=== PATIENT | female | born 1970 | race Caucasian/White ===

== ENCOUNTER 2023-01-22 07:02 | Outpatient (CLI) | payer BC, MEDICAID, SELFPAY ==
--- NOTE | 2023-01-22 07:17 | MR_ITS ---
WS: [id number] MRI LEFT KNEE HISTORY: L KNEE PAIN COMPARISON: None available. Anterior cruciate ligament: Intact. Posterior cruciate ligament: Intact. Medial collateral ligament: Intact. Posterior lateral corner structures: Intact. Medial menisci: Intact. Normal signal, size and shape. Lateral meniscus: Intact. Normal signal, size and shape. Extensor mechanism: Distal quadriceps tendon and patellar tendons are intact. Fluid and soft tissue: Minimal fluid in the suprapatellar bursa. Very tiny Toro's cyst. There is an additional soft tissue cystic mass posterior to the femoral metaphysis measuring 1.4 x 1.8 cm. There are serpiginous cystic areas extending from this mass posterior to the lateral femoral condyle. Mass is closely associated with the posterior femoral condyle and the synovium. Osseous and articular structures: Patellofemoral compartment: Normal. Medial compartment: Normal. Lateral compartment: Normal. MR/MR knee LT wo con* [id number] IMPRESSION: 1. Cystic mass with serpiginous cystic extension posterior to the femoral meta physis and greatest along the posterior lateral femoral condyle. Largest cystic component measures 1.4 x 1.8 cm. Differential includes ganglion, extracapsular synovial cyst and occult meniscal tear with cyst formation. 2. Very tiny Toro's cyst. 3. No meniscal tear identified.
== END 2023-01-22 07:03 | disposition home or self-care (01) ==
PROVIDERS: PCP Nurse Practitioner Family; Visit Provider Nurse Practitioner Family
DX: M25.562 Pain in left knee (principal); R22.42 Localized swelling, mass and lump, left lower limb; M71.22 Synovial cyst of popliteal space [Baker], left knee
CPT/HCPCS: 73721